=== PATIENT | female | born 1965 | race Caucasian/White ===

== ENCOUNTER 2020-05-29 21:35 | Emergency (ER) | payer OTHER ==
[~2020-05-29] VITALS: Ht 162.6 cm; Wt 61.2 kg
[~2020-05-29 21:35] MED LIST: LORATAB; NAPROSYN500 MG PO; NORCO 5-325 TA1 EACH PO; PROZAC 20 MG20 M1 PO; VITAMINS; VOLTAREN50 MG PO
[2020-05-29] MEDS ORDERED: BIOTIN1000 MCG PO (21:43)
[2020-05-29] MEDS ORDERED: MULTIVITAMINS1 EAC6 PO (21:43)
[2020-05-29 22:36] LABS: ABSOLUTE NEUTROPHILS 1.7 thou/uL (1.4-8.2); BASOPHILS 0.8 % (0.0-2.0); EOSINOPHILS 4.3 % (0.0-3.0); HEMATOCRIT 34.4 % (37.0-47.0); HEMOGLOBIN 11.7 gm/dL (12.0-15.0); LYMPHOCYTES 52.9 % (24.0-44.0); MCV 94.3 fL (80.0-100.0); MONOCYTES 8.6 % (1.0-8.0); PLATELET COUNT 256 thou/uL (150-400); POLYS 33.4 % (36.0-66.0); RBC 3.64 mil/uL (4.20-5.00); RDW 13.1 % (10.5-14.5)
[2020-05-29 22:37] LABS: URINE BILIRUBIN NEGATIVE (Negative); URINE BLOOD NEGATIVE (Negative); URINE CLARITY CLEAR; URINE COLOR YELLOW; URINE GLUCOSE-RANDOM* NEGATIVE (Negative); URINE KETONES NEGATIVE (Negative); URINE LEUKOCYTES-REFLEX TRACE (Negative); URINE NITRITE-REFLEX NEGATIVE (Negative); URINE PROTEIN (DIPSTICK) NEGATIVE (Negative); URINE SPECIFIC GRAVITY <= 1.005 (1.005-1.035); URINE UROBILINOGEN 0.2 E.U./dl (0.2-1.0)
[2020-05-29 22:40] LABS: ANION GAP 12 mmol/L (7-16); BUN 3 mg/dL (7-18); CALCIUM 8.2 mg/dL (8.5-10.1); CHLORIDE 100 mmol/L (98-107); CO2 25 mmol/L (21-32); CREATININE 0.7 mg/dL (0.6-1.0); GLUCOSE 115 mg/dL (74-106); POTASSIUM 3.9 mmol/L (3.5-5.1); SODIUM 137 mmol/L (136-145)
[2020-05-29 22:45] LABS: PROTIME 10.4 Seconds (9.3-11.4)
[2020-05-29 22:50] LABS: ALBUMIN 3.2 g/dL (3.4-5.0); SGOT 21 U/L (15-37); SGPT 25 U/L (30-65); TOTAL BILIRUBIN 0.2 mg/dL (0.2-1.0); TROPONIN-I <0.06 ng/mL (<0.06)
[2020-05-30 00:54] VITALS: BP 120/60
--- NOTE | 2020-05-30 08:33 | EKG ---
[facility] [place] [address] ELECTROCARDIOGRAM REPORT Name: RUDDY REDDING Room #: [facility]#: [id number] Admission: 05/29/20 Attend Phys: Discharge: 05/30/20 Date of : 69 Report #: [id number] THIS REPORT FOR: cc: NO FAMILY PHYSICIAN or PCP NO FAMILY PHYSICIAN or PCP Coleman Moore MD [facility] ~ THIS REPORT FOR: //name// [facility] ED Test Date: 2020-05-29 Test Time: 22:29:21 Pat Name: RUDDY REDDING Department: Room: Gender: F Assisted Living Director: : [id number] Requested By: Haroldo Macario Order Number: [id number] MD: Coleman Moore Measurements Intervals [place] Rate: 81 P: 61 [place]: 146 QRS: 15 QRSD: 100 T: 34 QT: 370 QTc: 430 Interpretive Statements Sinus rhythm Poor R wave progression Compared to ECG 10/03/2009 13:59:19 No significant change was found Electronically Signed On 05-30-2020 8:33:23 CDT by Coleman Moore [email or web address] <ELECTRONICALLY SIGNED> By: Coleman Moore MD, [facility] 09/05/11 [id number] Coleman Moore MD, [facility] /EPI
== END 2020-05-30 03:15 | disposition home or self-care (01) ==
LOC: ER 21:35
PROVIDERS: Emergency Medicine
DX: C50.912 Malignant neoplasm of unspecified site of left female breast (principal); R60.0 Localized edema; G62.9 Polyneuropathy, unspecified; Z79.899 Other long term (current) drug therapy; Z88.8 Allergy status to other drugs, medicaments and biological substances

== ENCOUNTER 2020-06-07 10:46 | Emergency (ER) | payer OTHER ==
[~2020-06-07] VITALS: Ht 162.6 cm; Wt 63.5 kg
[~2020-06-07 10:46] MED LIST changes: +BIOTIN1000 MCG PO; +MULTIVITAMINS1 EAC6 PO
[2020-06-07] MEDS ORDERED: KEFLEX500 M1 PO (12:52)
[2020-06-07] MEDS ORDERED: CLEOCIN HCL150 MG PO (12:52)
[2020-06-07] MEDS ORDERED: NORCO 5-325 TA1 EAC2 PO (12:57)
[2020-06-07 13:16] VITALS: BP 131/82
== END 2020-06-07 13:31 | disposition home or self-care (01) ==
LOC: ER 10:46
DX: L03.012 Cellulitis of left finger (principal); N63.0 Unspecified lump in unspecified breast; G62.9 Polyneuropathy, unspecified; Z79.899 Other long term (current) drug therapy; Z88.8 Allergy status to other drugs, medicaments and biological substances